=== PATIENT | female | born 1995 | race Caucasian/White ===

== ENCOUNTER 2019-04-17 20:55 | Emergency (ER) | payer BC ==
[~2019-04-17] VITALS: Ht 170.2 cm; Wt 68.1 kg
[2019-04-17] MEDS ORDERED: PROCHLORPERAZINE 5 MG/ML, 2ML ONE (22:58)
[2019-04-17] MEDS ORDERED: KETOROLAC 30 MG/1 ML ONE (22:58)
[2019-04-17] MEDS ORDERED: DIPHENHYDRAMINE 25 MG CAPSULE ONE (22:59)
[2019-04-17] MEDS ORDERED: ACETAMINOPHEN 325 MG TABLET ONE (22:59)
[2019-04-17] MEDS ORDERED: ACETAMINOPHEN 325 MG TABLET PO ONE (23:00)
[2019-04-17] MEDS ORDERED: PROCHLORPERAZINE 5 MG/ML, 2ML IM ONE (23:00)
[2019-04-17] MEDS ORDERED: DIPHENHYDRAMINE 25 MG CAPSULE PO ONE (23:00)
[2019-04-17] MEDS ORDERED: KETOROLAC 30 MG/1 ML IM ONE (23:00)
[2019-04-17 23:08] LABS: BASOPHILS # (AUTO) 0.01 x10^3/uL (0-0.1); BASOPHILS % (AUTO) 0 % (0-1); EOSINOPHILS # (AUTO) 0.08 x10^3/uL (0-0.4); EOSINOPHILS % (AUTO) 1 % (1-7); LYMPHOCYTES # (AUTO) 2.63 x10^3/uL (1-3.4); LYMPHOCYTES % (AUTO) 40 % (22-44); MD NO; MEAN CORPUSCULAR HEMOGLOBIN 27.1 pg (27.0-34.8); MEAN CORPUSCULAR HGB CONC 32.4 g/dL (32.4-35.8); MEAN CORPUSCULAR VOLUME 83.4 fL (80-100); MEAN PLATELET VOLUME 9.3 fL (7.4-10.4); MONOCYTES # (AUTO) 0.52 x10^3/uL (0.2-0.8); MONOCYTES % (AUTO) 8 % (2-9); NEUTROPHILS % (AUTO) 51 % (42-75); PLATELET COUNT 253 x10^3/uL (130-400); RED BLOOD COUNT 5.38 x10^6/uL (3.82-5.3); RED CELL DISTRIBUTION WIDTH 18.1 % (9.6-15.2)
[2019-04-17 23:17] LABS: ALBUMIN 4.4 g/dL (3.4-5.0); ANION GAP 5 mmol/L (5-15); CALCIUM 8.9 mg/dL (8.5-10.1); CHLORIDE 105 mmol/L (98-107); CREATININE 0.86 mg/dL (0.55-1.02)
--- NOTE | 2019-04-18 00:36 | NUR ---
TASK RN: PT REPORTS 'FEELING MUCH BETTER'. DC EDUCATION PROVIDED, PT DEMONSTRATES UNDERSTANDING. PT AMBULATED STEADILY TO DC WITH RN AND FRIEND. FRIEND TO TRANSPORT PT HOME.
[2019-04-18 00:37] VITALS: BP 124/65
== END 2019-04-18 00:39 | disposition home or self-care (01) ==
LOC: ED 23:59
DX: R51 Headache (principal); F17.200 Nicotine dependence, unspecified, uncomplicated
CPT/HCPCS: 36415; 70450; 80048; 82040; 84703; 85025; 96372; 99284; J0780; J1885; Q0163